=== PATIENT | female | born 1990 | race Caucasian/White ===

== ENCOUNTER 2018-09-12 18:26 | Emergency (ER) | payer OTHER, MEDICAID, SELFPAY ==
[2018-09-12 18:27] VITALS: BP 124/65; PULSE 79; RESP 18; TEMP 36.8; O2SAT 100; BMI 25.9
--- NOTE | 2018-09-12 18:47 | EKG12_ITS ---
Test Reason : SYNCOPE Blood Pressure : / mmHG Vent. Rate : 076 BPM Atrial Rate : 076 BPM P-R Int : 168 ms QRS Dur : 084 ms QT Int : 378 ms P-R-T Axes : 068 079 064 degrees QTc Int : 425 ms Sinus rhythm with marked sinus arrhythmia Otherwise normal ECG Confirmed by MIKALA DUONG, CAROLYNN ([id number]), rewrite editor SANG PADRON ([id number]) on 09/14/2018 3:44:00 PM Referred By: SHELBIE READ Confirmed By:CAROLYNN BACH MD
[2018-09-12 19:24] LABS: Absolute Lymphocyte Count 1.77 X10^3/ul (0.83-4.51); Absolute Neutrophil Count 2.6 X10^3/uL (2.0-7.7); Basophil# 0.01 X10^3/uL; Basophil% 0.2 % (0-1); Eosinophil# 0.09 X10^3/uL; Eosinophils% 1.8 % (0-5); Hematocrit 37.5 % (37-47); Hemoglobin 12.1 g/dl (12.0-15.0); Lymphocyte # 1.77 X10^3/ul (4.0); Lymphocyte % 35.3 % (19-41); Mean Corp Hgb Conc 32.3 g/gl (32-36); Mean Corpuscular Hgb 29.4 pg (27.0-32.0); Mean Corpuscular Volume 91.2 fL (81-99); Mean Platelet Vol. 11.5 fl (6.2-12.0); Monocyte# 0.53 X10^3/uL; Monocyte% 10.6 % (0-10); Neutrophil # 2.61 X10^3/uL (2.7-7.7); Neutrophil % 51.9 % (47-70); Platelet Count 356 K/mm3 (150-450); RBC Distribution Width CV 14.4 % (11.6-14.6); RBC Distribution Width SD 47.4 fl (35.1-43.9); Red Blood Count 4.11 M/mm3 (4.2-5.4)
[2018-09-12] MEDS: 0.9% Normal Saline 1,000 ML 1000 ML IV (19:24)
[2018-09-12 19:25] VITALS: BP 119/77; PULSE 81; RESP 18; O2SAT 99
[2018-09-12 19:25] LABS: POSITIVE COUNT NO; POSITIVE DIFFERENTIAL NO; POSITIVE MORPHOLOGY NO
--- NOTE | 2018-09-12 19:51 | ED.VISSUMM ---
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 She had trying to sit down but it up passing out and hit her head on the ground. She is found by coworkers. She notes she has some tenderness over her occiput. Patient denies any other injuries. Patient states that she still feels a bit dizzy now. She has a history of syncope and has had extensive cardiac and neurologic elevation. Physical Examination: Afebrile vital signs are stable Gen: Well-nourished well-developed Head: Normocephalic there is an occipital hematoma Eyes: Perrl EOMI ENT: TMs clear no rhinorrhea moist mucous membranes Neck: Supple no lymphadenopathy no JVD nontender CVS: Regular rate rhythm no murmurs normal S1-S2 Respiratory: No distress clear to auscultation bilaterally chest nontender Abdomen: Soft nontender nondistended normal bowel sounds no masses Back: Nontender Extremity: Nontender no edema Skin: Normal color no rash Neuro: alert orientated ?3 CN II-XII intact normal strength sensation reflexes gait cerebellar Psych: Normal affect normal mood Test Results: EKG showed a sinus rhythm at a rate of 76 with sinus arrhythmia. CBC was normal. Potassium 3.4. test negative. Emergency Department Course and Treatment: Patient received IV fluids and Zofran. She will be discharged home with supportive care. Follow-up with her doctors. Impression: 1. Syncope 2. Scalp hematoma This note was generated with [employer] dictation software. 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
[2018-09-12 20:20] VITALS: BP 113/78; PULSE 77; RESP 16; O2SAT 99
--- NOTE | 2018-09-12 20:25 | ED.RN ---
called lab to check on BMP results
[2018-09-12 20:37] LABS: Anion Gap 8 (5-15); BUN 15 mg/dL (7-18); BUN/Creat Ratio 17.8 RATIO (10-20); Calcium,Total 8.8 mg/dL (8.5-10.1); Chloride 106 mmol/L (98-107); Creatinine, Serum 0.84 mg/dL (0.55-1.02); EST Glomerular Filtration Rate 84 mL/min (>60); Est Glom Filt Rate - Afr Amer 102 mL/min (>60); Estimated Creatinine Clearance 95.23 ml/min; Glucose 94 mg/dL (74-106); Potassium 3.4 mmol/L (3.5-5.1); Sodium Level 139 mmol/L (136-145)
[2018-09-12 20:42] LABS: Pregnancy, Serum, hCG Quali. NEGATIVE Negative (0-9 Nonpreg)
[2018-09-12 21:19] VITALS: BP 121/79
== END 2018-09-12 21:19 | disposition home or self-care (01) ==
PROVIDERS: Emergency Provider Emergency Medicine
DX: R55 Syncope and collapse (principal); S00.03XA Contusion of scalp, initial encounter; I49.8 Other specified cardiac arrhythmias; W22.8XXA Striking against or struck by other objects, initial encounter; Y93.9 Activity, unspecified; Y92.9 Unspecified place or not applicable; Y99.0 Civilian activity done for income or pay
CPT/HCPCS: 80048; 84703; 85025; 93005; 99285

== ENCOUNTER 2019-09-24 14:09 | Emergency (ER) | payer OTHER, SELFPAY ==
[2019-09-24 14:11] VITALS: BP 127/76; PULSE 90; RESP 16; TEMP 37.1; O2SAT 100; BMI 25.8
--- NOTE | 2019-09-24 14:55 | RAD_ITS ---
STUDY: X-RAY - LEFT FOOT CLINICAL: Female, 29 years old. Patient dropped a rotor on top of foot while at work TECHNIQUE: 3 view(s) of the foot. COMPARISON: None. FINDINGS: Normal talus, calcaneus, and tarsal bones. Normal visualized subtalar, talonavicular, calcaneocuboid, tarsal and tarsometatarsal articulations. Normal metatarsi. Normal metatarsophalangeal joint of the great toe. Normal tibial and fibular sesamoid bones. Normal interphalangeal joint of the great toe. Normal phalanges of the great toe. Normal second through fifth metatarsophalangeal joints. Normal interphalangeal joints and phalanges of the lesser toes. The soft tissue structures are unremarkable. RAD/Foot min 3 Views IMPRESSION: Normal x-ray examination of the foot. Electronically Signed: [place] Gonsales, at 15:20 EST , Service support ,
--- NOTE | 2019-09-24 15:38 | ED.DCSUM_ITS ---
History of Present Illness Chief Complaint: Lower Extremity Injury Narrative: Patient presenting secondary to a foot injury. Patient reports that she dropped a semitruck brake rotor on her left foot injuring her great toe and other toes. She has pain with bearing weight. She denies any other injuries. Pain is moder ate to severe. Past Medical History - Allergies and Home Meds Allergies/Adverse Reactions: Allergies adhesive Allergy (Verified 09/24/19 14:11) Rash azithromycin Allergy (Verified 09/24/19 14:11) Other jer flavor Allergy (Verified 09/24/19 14:11) Swelling acetaminophen [From Percocet] Adverse Reaction (Verified 09/24/19 14:11) Other oxycodone HCl [From Percocet] Adverse Reaction (Verified 09/24/19 14:11) Other Primary Care Physician: Care Physician,No Primary [Primary Care Provider] - Past Medical History: None Smoking Status: Current every day smoker Review of Systems General: Denies: Fever Musculoskeletal: Reports: Extremity Pain Skin: Denies: Abrasions Neurological: Denies: Weakness, Parasthesia Physical Exam Vital Signs/Narrative: Vital Signs Temp Pulse Resp BP Pulse Ox 09/24/19 14:11 98.8 F 90 16 127/76 H 100 - Extremity Exam Left Foot: - - Examination of the patient's left foot shows bruising over the proximal phalanx of the patient's left great toe with limited range of motion due to pain. There is tenderness palpation of the great and second toes. No midfoot tenderness. Normal pulses. General: Well nourished, Well developed Head: Normocephalic ENT: No Trauma Cardiovascular: Regular rate, Regular rhythm Respiratory: No distress Skin: Normal color Neurological: Alert, Oriented x3 Diagnostic/Tx/Re-eval - Medical Decision Making Patient presented secondary to a foot injury. Personal review of the patient's three-view x-ray shows a fracture of the proximal phalanx of the great toe that is intra-articular. Patient be placed in a walking boot and crutches and will be made nonweightbearing. She will be given orthopedics with which to follow- up. ED Disposition - Plan for ED Patient: Disposition: Home or Assisted Living Diagnosis: Fractured great toe Instructions: FRACTURE, Toe [Closed] Referrals: Sherman So MD [STAFF PHYSICIAN] - 1 Week
[2019-09-24 16:08] VITALS: PULSE 88; RESP 17; O2SAT 97
== END 2019-09-24 16:09 | disposition home or self-care (01) ==
PROVIDERS: Emergency Provider Emergency Medicine
DX: S92.412A Displaced fracture of proximal phalanx of left great toe, initial encounter for closed fracture (principal); W20.8XXA Other cause of strike by thrown, projected or falling object, initial encounter; Y99.0 Civilian activity done for income or pay; Y93.9 Activity, unspecified; F17.200 Nicotine dependence, unspecified, uncomplicated; Z88.5 Allergy status to narcotic agent
CPT/HCPCS: 73630; 99285

== ENCOUNTER 2020-05-28 19:25 | Emergency (ER) | payer MEDICAID, SELFPAY ==
[2020-05-28 19:26] VITALS: BP 134/85; PULSE 93; RESP 16; TEMP 36.6; O2SAT 100; BMI 27.9
--- NOTE | 2020-05-28 19:50 | ED.VIS.GEN ---
History of Present Illness Chief Complaint: Allergic Reaction Informant: Patient Narrative: 29-year-old female presenting with concern for allergic reaction. She states she ate a barbecue sauce at a restaurant and now her lips are tingling and she has a rash on her hands. Does not feel as if her throat is closing. She does not have abdominal pain, nausea, vomiting, shortness of breath. Patient states that she has been having more odd outbreaks to different foods, and she is going to get food allergy testing done soon. She does not have an EpiPen at home. Past Medical History - Allergies and Home Meds Allergies/Adverse Reactions: Allergies adhesive Allergy (Verified 05/28/20 19:29) Rash azithromycin Allergy (Verified 05/28/20 19:29) Other Iodinated Contrast Media [CONTRASTS] Allergy (Verified 05/28/20 19:29) Hives jer flavor Allergy (Verified 05/28/20 19:29) Swelling oxycodone HCl [From Percocet] Adverse Reaction (Verified 05/28/20 19:29) Other Primary Care Physician: Sea Cox DO [Primary Care Provider] - Past Medical History: - - Food allergies Surgical History: noncontributory Lives: With Family Smoking Status: Current every day smoker Alcohol: None Drugs: None Review of Systems General: Denies: Chills, Fever, Sweats Eyes: Denies: Visual changes - bilaterally, Diplopia ENT: Reports: - - Lips tingling. Denies: Rhinorrhea, Sore throat Cardiovascular: Denies: Chest pain, Palpitations Respiratory: Denies: Dyspnea, Cough, Dyspnea on exertion Gastrointestinal: Denies: Abdominal pain, Nausea, Vomiting, Diarrhea, Melena, Hematochezia Skin: Reports: Rash Physical Exam Vital Signs/Narrative: Vital Signs Temp Pulse Resp BP Pulse Ox 05/28/20 19:26 98 F 93 16 134/85 H 100 Inital Vital Signs reviewed: Yes General: Well nourished, No Acute Distress Head: Normocephalic, Atraumatic ENT: Moist mucous membranes, No rhinorrhea, - - No stridor Cardiovascular: Regular rate, Regular rhythm Respiratory: No distress, CTA bilaterally Abdomen: Soft, Nontender Skin: Rash - Cryo rash on hands. Neurological: Alert, Oriented x3 Psychological: Normal affect Diagnostic/Tx/Re-eval - Medical Decision Making Patient presents with allergic reaction which is likely to the food she was eating. She was given oral prednisone, Pepcid, Benadryl. Her vital signs are stable and she is afebrile. I checked on her multiple times and her symptoms improved although she was tired from the Benadryl. Her mother is here accompanying her and will get her home. I feel she is safe to be discharged at this time. I did write her a prescription for an EpiPen for home. She is given return precautions. Patient able for discharge at this time. Impression: 1. Allergic reaction ED Disposition - Plan for ED Patient: Disposition: Home or Assisted Living Instructions: ED Allergic Reaction Local Other Prescriptions: Epi Pen (for allergic rxn) 0.3 mg IM X1 PRN #2 syringe PRN Reason: allergic reaction Transmission Status: Received by [facility] [address] predniSONE tablet 60 mg PO DAILY #15 tab Transmission Status: Received by [facility] Referrals: Sea Cox DO [Primary Care Provider] -
[2020-05-28] MEDS: Famotidine 20 MG Tablet PO (19:57)
[2020-05-28] MEDS: predniSONE 20 MG Tablet 60 MG PO (19:57)
[2020-05-28] MEDS: DiphenhydrAMINE 25 MG Capsule PO (20:02)
[2020-05-28 21:59] VITALS: BP 116/81; PULSE 62; RESP 18; O2SAT 98
== END 2020-05-28 21:59 | disposition home or self-care (01) ==
PROVIDERS: Emergency Provider Student in an Organized Health Care Education/Training Program; PCP Student in an Organized Health Care Education/Training Program
DX: T78.40XA Allergy, unspecified, initial encounter (principal); F17.200 Nicotine dependence, unspecified, uncomplicated
CPT/HCPCS: 99283

== ENCOUNTER → 2020-07-30 14:12 | Outpatient (CLI) | payer MEDICAID, SELFPAY ==
--- NOTE | 2020-07-30 14:15 | US_ITS ---
STUDY: ULTRASOUND BREAST - LEFT REASON FOR EXAM: Female, 29 years old. Palpable lump left breast. TECHNIQUE: Axial and longitudinal images of the LEFT breast were performed with a high resolution ultrasound transducer. # OF IMAGES: 8 COMPARISON: Comparison is made with prior mammogram done earlier in the day. FINDINGS: LEFT Breast: There is a 4 mm x 3 mm x 2 mm cyst at the 3 o''clock position of the breast at 1 cm from the nipple. US/Breast Limited Unilateral IMPRESSION: 4 mm x 3 mm x 2 mm cyst at the 3 o''clock position of the breast at 1 cm from the nipple. ASSESSMENT CATEGORY: BIRADS Category 2: Benign. A letter regarding these results will be sent to the patient by the facility within 30 days. Electronically Signed: [place] Gonsales, at 15:42 EST , Service support ,
--- NOTE | 2020-07-30 14:15 | BI_ITS ---
MAMMOGRAPHY - BILATERAL DIAGNOSTIC REASON FOR EXAM: Female, 29 years old. Left retroareolar lump and left breast discharge. PERTINENT HISTORY: Grandmother with breast cancer. Aunt''s with breast cancer. TECHNIQUE: Digital bilateral breast cornelius (3D mammographic acquisition) in the CC and MLO projections. 2-D mediolateral oblique (MLO) and craniocaudad (CC) views of both breasts were obtained. CAD: Full Field Digital Mammography with Computer Added Detection was performed. COMPARISON: None. Baseline examination. FINDINGS: Breast Composition: The breasts are heterogeneously dense, which may obscure small masses. There are no dominant masses or suspicious calcifications. A loop recording device is seen overlying the inferior medial portion of the left breast. No other significant abnormalities are identified. BI/DIAG MAMM W/CAD, BILAT IMPRESSION: Negative diagnostic mammogram. With the patient''s history of left breast discharge and retroareolar lump, correlation with ultrasound is recommended. ASSESSMENT CATEGORY: BIRADS Category 0: Incomplete. Need additional imaging evaluation. A letter regarding these results will be sent to the patient by the facility within 30 days. Approximately 10% of breast cancers are not detected by mammography. A normal mammogram should not delay biopsy of a clinically suspicious abnormality. Electronically Signed: [place] Gonsales, at 15:12 EST , Service support ,
== END ==
PROVIDERS: PCP Student in an Organized Health Care Education/Training Program; Referring Provider Registered Nurse; Visit Provider Registered Nurse
DX: N64.52 Nipple discharge (principal)
CPT/HCPCS: 76642; 77062; 77066; G0279

== ENCOUNTER 2020-08-26 05:58 | Day surgery (SDC) | payer MEDICAID, SELFPAY ==
[2020-08-19 11:41] VITALS: BMI 25.8
[2020-08-26] VITALS (7 sets, daily range): BP systolic 97–129; BP diastolic 64–79; PULSE 58–99; RESP 14–18; TEMP 36.2–37.3; O2SAT 98–100; BMI 26.7
--- NOTE | 2020-08-26 | IMM_PTH ---
PATIENT: ROSSANA HARO LOC: [facility] U#:[id number] AGE/SX: 29/F ROOM: RE08/26/[address]: Dr. Steve Duff MD : 1990 BED: DIS: 08/26/2020 SPEC #: [id number] RECD: 08/27/20 11:59 STATUS: KAYLIE REQ #: [id number] YURY: 08/26/20 00:[address]: Steve Duff DEPT: IMMUNOHISTOCHEMISTRY RECD BY: Ann-Marie Li ENTERED: 08/27/20 12:00 SP TYPE: IMMUNO OTHR DR: Dr. Sea Cox, Tissues: Left breast, NOS Procedures: CK8 (initial) CALPONIN-1 (add) P40 (add) PHYSICIAN & INSTITUTION [place] [id number] SPECIMEN INFORMATION: Tissue Source: Left breast mass, excisional biopsy Clinical Info: Left breast mass Specimen Number: [id number] #2 CPT code: 29310, 10937 x2 METHODOLOGY: Deparaffinized sections of prefer/formalin-fixed tissue or PAP/DQ stained slides are incubated with monoclonal/polyclonal antibodies/oligonucleotide probes. Localization is made via biotin free immunoperoxidase method. Appropriate controls are performed and reacted as expected. Results on target cell population are indicated in the following table: RESULTS: ANTIBODY / CLONE RESULT Block 2 CK8 ([id number]) positive P40 (BC28) positive Calponin-1 (PE565A) positive These tests were developed and their performance characteristics determined by [facility]. They may not have been cleared or approved by the U.S. Food and Drug Administration. The FDA has determined that such clearance or approval is not necessary. The above immunohistochemical/dualISH markers are ordered and reviewed by the Pathologist. INTERPRETATION: Left breast mass, excisional biopsy: Intraductal papilloma. AM:ashley 08/28/20
--- NOTE | 2020-08-26 06:10 | HP_ITS ---
Intake Vital Signs 08/19/20 Height 5 ft 7 in 08/19/20 Weight: 165 lb 08/19/20 BP 136/79 H 08/19/20 Blood Pressure Location Lt brachial 08/19/20 Position Sitting 08/19/20 Respiration 16 Intake Visit Reasons: BIRADS 2 LEFT BREAST Chief Complaint: left nipple discharge Network Engineering Advisor Required: No Is patient in pain?: Yes (left breast) Allergies adhesive Allergy (Verified 08/19/20 11:42) Rash azithromycin Allergy (Verified 08/19/20 11:42) Other Iodinated Contrast Media [CONTRASTS] Allergy (Verified 08/19/20 11:42) Hives jer flavor Allergy (Verified 08/19/20 11:42) Swelling oxycodone HCl [From Percocet] Adverse Reaction (Verified 08/19/20 11:42) Other Medications Epi Pen (for allergic rxn) 0.3 mg IM X1 PRN #2 syringe 05/28/20 [Rx] chlorpheniramine maleate 4 mg tablet 4 mg PO Q6H PRN 08/19/20 [History Confirmed 08/19/20] naproxen sodium 220 mg tablet 220 mg PO BID PRN 08/19/20 [History Confirmed 08/19/20] triamcinolone acetonide 0.1 % lotion 1 applic TOPICAL DAILY 08/19/20 [History Confirmed 08/19/20] PFSH Medical History (Updated 08/19/20 @ 11:39 by Ita Cheema) Diarrhea (Acute) Discharge from left nipple (Acute) Lupus (Acute) RLS (restless legs syndrome) (Acute) SOB (shortness of breath) (Acute) Sjogren's disease (Acute) Surgical History (Updated 08/19/20 @ 11:39 by Ita Cheema) History of loop recorder (Acute) Family History (Updated 08/19/20 @ 11:41 by Ita Cheema) Grandmother Diabetes Kidney disease Thyroid disorder Cancer Breast cancer Father Asthma Heart disease CAD (coronary artery disease) Hypertension Grandfather Colon cancer Social History (Updated 08/19/20 @ 14:[address] Steve Duff MD) Smoking Status: Never smoker HPI HPI HPI: ROSSANA ABRAMS, is a 29 F who presents to the office today for HPI HPI Surgical H&P: Yes HPI: ROSSANA ABRAMS, is a 29 F who presents to the office today for Left breast mass. The patient has had a palpable left breast mass by the left nipple for the past 3 weeks. She also reports that she has been having nipple discharge which has been bloody or clear. The patient notes that she also has a significant history of breast and brain cancer and skin cancer in her family. ROS General General: No weight change or fatigue Breast Breast: Yes left breast lump, nipple discharge, breast pain and abnormal US Cardio Cardiovascular: No murmur, pacemaker, heart disease, atrial fibrillation, high blood pressure, heart attack, heart stent, palpitations, shortness of breat with exertion or chest pain Psych Psychiatric: No depression or anxiety Resp Respiratory: No shortness of breath, No sleep apnea, No cough, No COPD, No asthma, No emphysema, No wheezing Gastro Gastrointestinal: No abdominal pain, No nausea or vomiting, No diarrhea, No constipation, No blood in stool, No acid reflux, No hemorrhoids, No ulcers, No gallbladder problem, No black,tarry stools Paul Hematologic: No blood thinners Exam Const General: cooperative Orientation: alert, oriented x3 Chest Chest palpation & inspection: normal inspection of the chest Breast inspection: normal inspection of the breasts Breast Palpation: Yes breast mass lrb: Left, Yes nipple discharge lrb: Left Resp Effort & Inspection: normal respiratory effort Auscultation: clear to auscultation bilaterally Cardio Rate: regular rate Rhythm: regular rhythm Heart Sounds: no murmurs GI Inspection: non-distended Palpation: soft, nontender Assessment & Plan Problems 1. Left breast mass N63.20 Plan The patient has a palpable mass behind the left nipple. She is also having bloody nipple discharge. She had a mammogram and ultrasound which showed a small cyst behind the left areola. The patient has a firm nodule that I can feel and she does have bloody discharge on exam. I would recommend excisional biopsy of this area as she may have a large papilloma causing the bleeding. I discussed this with her in detail as well as the risks of bleeding, infection, hematoma, possibility of cancer requiring further surgery. The patient understands all the risks and is well to proceed with excisional biopsy of the left breast mass in OR. We discussed the current risks associated with COVID-19. While it is understood that there is a community spread of COVID-19, the risk of jeet COVID-19 while at [facility] ([facility]) is very low; however, the risk cannot be completely mitigated because of the community spread of the disease. We discussed in detail the risk of exposure to and/or potential harm posed by the COVID-19 virus with having a surgery/procedure at this time versus the risk of delaying the surgery/procedure. It is not possible to know either the risk of delaying the surgery or procedure or chance of getting an infection with perfect accuracy, but a joint decision was made to proceed at this time with the scheduled surgery/procedure as indicated on the consent form. Patient was notified that we will need to comply with any screening or testing [facility] wishes to perform or that surgery may be delayed for any positive results. Steve Duff MD Pager: [facility] [address] [place] [address], [address] [place] [address] Office: Coding Level of Care Code Off vis,new,level 3 Diagnoses Left breast mass N63.20 I have re-examined the patient. There are no clinical changes since date of exam.
[2020-08-26 06:29] LABS: Internal QC Validated? YES +Cl - CLEAR BKGD; Pregnancy, Urine Negative Negative
[2020-08-26] MEDS: Lactated Ringers 1,000 ML 100 ML IV (06:57)
[2020-08-26] MEDS: Cefazolin 2 GM in 0.9% Normal Saline 100 ML IV (07:30)
--- NOTE | 2020-08-26 07:30 | BRBX_PTH ---
PATIENT: ROSSANA HARO LOC: [facility] [place] U#:[id number] AGE/SX: 29/F ROOM: RE08/26/[address]: Dr. Steve Duff MD : 1990 BED: DIS: 08/26/2020 SPEC #: [id number] RECD: 08/26/20 08:34 STATUS: KAYLIE REOlive #: [id number] YURY: 08/26/20 07:[address]: Steve Duff DEPT: SURGICAL PATHOLOGY RECD BY: Rogelio Butterfield ENTERED: 08/26/20 09:01 SP TYPE: BREAST BX OT DR: Dr. Sea Cox, DO Tissues: Left breast, NOS Procedures: Surgery Specimen Level IV HEADER OPERATION: Excision, breast mass PRE-OP DIAGNOSIS: Left breast mass TISSUE SUBMITTED: Left breast mass MICROSCOPIC DIAGNOSIS Left breast mass, excisional biopsy: Intraductal papilloma. See comment. AM:ashley 08/27/20 COMMENT The lesion appears to have been completely excised in the planes examined. Immunohistochemistry ([id number]) supports the above diagnosis. MICROSCOPIC DESCRIPTION Slides are reviewed. GROSS DESCRIPTION Received in fixative is one container labeled with the patient's name and designated mass left breast. The specimen consists of two irregular fragments of santiago-yellow fibrofatty tissue. The smaller fragment measures 1.2 x 1 x 0.6 cm. This fragment is inked, bisected and totally submitted in cassette 1. The second fragment measures 3 x 2 x 1.5 cm. The second fragment is inked, sectioned and totally submitted in cassette 2. / AM:ashley 08/26/20 TC:1 CPT: 89841
[2020-08-26] MEDS: Bupivacaine Mpf 0.5% 30 ML VIAL (07:45)
--- NOTE | 2020-08-26 08:19 | OP.PCM_ITS ---
Problem List (1) Left breast mass Status: Acute Report of Operation Date of Procedure: 08/26/20 Pre-Operative Diagnosis: Left breast mass Post-Operative Diagnosis: Same Surgery/Procedure Performed:: Excisional biopsy left breast mass Specimen's removed: Left breast mass Description of Procedure: The patient was brought back to the operating room MAC anesthesia was induced. The left breast was prepped and draped in usual sterile fashion. A periareolar elliptical incision was marked and then anesthetized with local anesthetic. Scalpel was used to make an incision in electrocautery was used to maintain hemostasis. The mass was identified and grasped with an Allis and dissected free circumferentially with electrocautery. The cavity was irrigated and suc tioned dry and palpated and there were no further masses. The skin was closed with interrupted 3-0 Vicryl sutures as well as a running 4-0 Monocryl suture and glue. Patient tolerated the procedure was brought to PACU in stable condition. - Admit VTE Documentation VTE Mechan Device Prophylaxis: SCD's
--- NOTE | 2020-08-26 08:32 | PCM.DC.BS ---
Discharge Diet: No Restrictions Discharge Activity: May Not Drive - for 2-3 days or while taking narcotic pain meds. May shower in (days): 1 Lifting Restrictions: 10 pounds for 1 week. Call your doctor if your incision/area has: Continuous Slow Oozing, Sudden Increased Bleeding, Increased Pain/ Swelling, Increased Redness, Foul Smelling Discharge, Swelling at the incision site Call your doctor if you observe: Fever of 101 or Higher Suture Line Care: Avoid Pulling/Pushing, Avoid Pinching/Bending Allergies/Adverse Reactions: Allergies adhesive Allergy (Verified 08/19/20 11:42) Rash azithromycin Allergy (Verified 08/19/20 11:42) Other benzoyl peroxide Allergy (Verified 08/25/20 08:32) Rash CAUSES A BURN TO SKIN Iodinated Contrast Media [CONTRASTS] Allergy (Verified 08/19/20 11:42) Hives jer flavor Allergy (Verified 08/19/20 11:42) Swelling oxycodone HCl [From Percocet] Adverse Reaction (Verified 08/19/20 11:42) Other Medications to take at Discharge Epi Pen (for allergic rxn) 0.3 mg IM X1 PRN #2 syringe 05/28/20 chlorpheniramine maleate 4 mg tablet 4 mg PO Q6H PRN 08/19/20 naproxen sodium 220 mg tablet 220 mg PO BID PRN 08/19/20 triamcinolone acetonide 0.1 % lotion 1 applic TOPICAL DAILY 08/19/20 Ferrous Sulfate 325 mg PO DAILY@0800 08/25/20 Hydrocortisone [Cortisone] 60 gm TP PRN PRN 08/25/20 Hydrocodone/Acetaminophen [Hydrocodon-Acetaminophen 5-325] 1 - 2 tab PO Q6H PRN PRN 3 Days #10 tab 08/26/20 The following prescriptions were given: Hydrocodone/Acetaminophen [Hydrocodon-Acetaminophen 5-325] 1 - 2 tab PO Q6H PRN PRN 3 Days #10 tab PRN Reason: Pain Score 4-10/10 Transmission Status: Received by [facility] Primary Care Physician: Sea Cox DO [Primary Care Provider] - Please Follow Up With: Steve Duff MD When: Please call to schedule 2 week follow up appointment. [phone]
== END 2020-08-26 09:37 | disposition home or self-care (01) ==
LOC: SDC 05:59 → AC 05:59
PROVIDERS: Anesthesiology; PCP Student in an Organized Health Care Education/Training Program; Referring Provider Surgery; Visit Provider Surgery
PROC: (CPT 19301; principal; 2020-08-26 07:15)
DX: D24.2 Benign neoplasm of left breast (principal); N64.52 Nipple discharge; Z88.5 Allergy status to narcotic agent; Z88.8 Allergy status to other drugs, medicaments and biological substances
CPT/HCPCS: 19120; 81025; 87426; 88305; 88341; 88342; C9803; J7120; J2405

== ENCOUNTER 2021-12-15 19:02 | Emergency (ER) | payer OTHER, MEDICAID, SELFPAY ==
[2021-12-15 19:03] VITALS: BP 114/73; PULSE 79; RESP 17; TEMP 36.4; O2SAT 100; BMI 29.7
--- NOTE | 2021-12-15 19:26 | CT_ITS ---
EXAM: CT LUMBAR SPINE WITHOUT INTRAVENOUS CONTRAST CLINICAL INDICATION: injury/pain TECHNIQUE: Helically acquired images were obtained of the lumbar spine without intravenous contrast. 2D reformats were reviewed. This CT exam was performed using one or more of the following dose reduction techniques: automated exposure control, adjustment of the mA and/or kV according to patient size, and/or use of iterative reconstruction technique. This report was created using [employer] report generation technology. COMPARISON: None. FINDINGS: VERTEBRAE: Unremarkable. No fracture. No traumatic subluxation. No discrete lytic or blastic abnormality. Normal alignment. DISCS/SPINAL CANAL/NEURAL FORAMINA: There appears to be left paracentral disc protrusion at the L5-S1 level narrowing the left lateral recess. VASCULATURE: Visualized abdominal aorta is not dilated. LYMPH NODES: Unremarkable. No retroperitoneal adenopathy. CT/Spine Lumbar without Contrast IMPRESSION: 1. No acute fracture or subluxation. 2. Left L5 paracentral disc protrusion. Electronically Signed: Bowen Mcmahan MD at 20:05 EDT ,
--- NOTE | 2021-12-15 19:27 | ED.VIS.BACK ---
HPI History of Present Illness Chief Complaint: Back Informant: patient and EMS Onset/Context/Timing Onset: Today Context: Sudden Onset Injury: bending Timing: Continuous Quality: Aching Location: Lumbar Current Severity: Severe Maximum Severity: Severe Worsened by: improves with Movement Relieved by: Remaining Still Associated Symptoms Associated Symptoms: Tingling (in both posterior proximal thighs. Also all fingertips bilaterally.) and Unable to Ambulate; Negative for Abdominal Pain, Urinary Retention, Urinary Incontinence and Fecal Incontinence Narrative Narrative: Patient has a history of scoliosis and remote compression fractures in her spine after falling down a flight of steps 10 or 15 years ago, states that she bent over to pick a shirt up off the floor and suddenly had severe pain in her low back and her back locked up and she is unable to stand due to the pain and called EMS. She has tingling in both proximal thighs, with pain going into the buttock bilaterally, but no numbness in her feet. She developed tingling in all of her fingertips bilaterally but that started later. [facility] Medical History TONY II (cervical intraepithelial neoplasia II) Diarrhea Discharge from left nipple Left thyroid nodule Lupus JUAN (obstructive sleep apnea) Positive BOOGIE (antinuclear antibody) RLS (restless legs syndrome) Scoliosis Sjogren's disease SOB (shortness of breath) Vocal cord dysfunction Home Medications epinephrine 0.3 mg IM X1 PRN #2 syringe 05/28/20 [Rx Last Taken Unknown] chlorpheniramine maleate 4 mg tablet 4 mg PO Q6H PRN 08/19/20 [History Last Taken Unknown] naproxen sodium 220 mg tablet 220 mg PO BID PRN 08/19/20 [History Last Taken Unknown] triamcinolone acetonide 0.1 % lotion 1 applic TOPICAL DAILY 08/19/20 [History Last Taken Unknown] ferrous sulfate 325 mg PO DAILY@0800 08/25/20 [History Last Taken Unknown] hydrocortisone 60 gm TP PRN PRN 08/25/20 [History Last Taken Unknown] cyclobenzaprine 10 mg PO TID PRN #20 tablet 12/15/21 [Rx Last Taken Unknown] hydrocodone-acetaminophen 1 tab PO Q4H PRN PRN 3 Days #18 tablet 12/15/21 [Rx Last Taken Unknown] Allergy/AdvReac Type Severity Reaction Status Date / Time adhesive Allergy Rash Verified 12/15/21 19:07 azithromycin Allergy Other Verified 12/15/21 19:07 benzoyl peroxide Allergy Rash Verified 12/15/21 19:07 Iodinated Contrast Media Allergy Hives Verified 12/15/21 19:07 [CONTRASTS] jer flavor Allergy Swelling Verified 12/15/21 19:07 oxycodone HCl [From Percocet] AdvReac Other Verified 12/15/21 19:07 Family History (Updated 08/19/20 @ 11:41 by Ita Cheema) Grandmother Diabetes Kidney disease Thyroid disorder Cancer Breast cancer Father Asthma Heart disease CAD (coronary artery disease) Hypertension Grandfather Colon cancer Surgical History (Updated 11/21/20 @ 13:57 by Tiana Crocker) History of hip surgery History of loop recorder History of lumpectomy of left breast (~07/2020) Social History Smoking Status: Never smoker alcohol intake: never ROS ROS ED Constitutional Constitutional ED: Denies chills or fever(s) Gastrointestinal Gastrointestinal: Denies abdominal pain, constipation, fecal incontinence, nausea or vomiting Genitourinary Genitourinary ED: Reports other Details: no urinary retention ; Denies abdominal discomfort or urinary incontinence Musculoskeletal Musculoskeletal: Reports as per HPI and back pain; Denies neck pain Integumentary Denies rash or wounds Neurologic Neurologic: Reports paresthesias; Denies headache(s) or weakness EXAM Physical Exam Const Vital Signs: 12/15/21 19:03 Temperature 97.5 F L Temperature Source Temporal Pulse Rate 79 Respiratory Rate 17 Blood Pressure 114/73 Blood Pressure Mean 86 Pulse Ox 100 Oxygen Delivery Method Room Air Positive well nourished and well developed General Appearance ED: well developed and NAD HEENT Negative for trauma or tenderness Eyes PERRL and EOMs intact bilaterally Neck full ROM and supple GI normal to inspection, nondistended, normoactive bowel sounds, soft to palpation and non-tender Back/Spine normal to inspection Back/Spine Narrative: Tender across the upper lumbar area approximately L2, midline and bilateral paraspinal musculature. Thoracic Spine / Upper Back: normal to inspection Lumbar Spine / Lower Back: normal to inspection, ROM limited and other soft tissue findings bilateral (Unable to perform straight leg raises due to pain in her back) Extremity normal to inspection, full ROM and no pedal edema Neuro oriented x3 and no sensory deficits noted Sensorium / Orientation: alert Motor Exam: strength 5/5 throughout and clonus absent Deep Tendon Reflexes: Rt Patellar (L4): 2+, Lt Patellar (L4): 2+, Rt Ankle (S1): 2+ and Lt Ankle (S1): 2+ Deep Tendon Reflexes Back: Rt Patellar (L4): 2+, Lt Patellar (L4): 2+, Rt Ankle (S1): 2+ and Lt Ankle (S1): 2+ Plantar Reflex: Downgoing: bilateral Psych mental status grossly normal and thought process normal Skin no rashes or lesions noted and no wounds MDM MDM MDM Narrative Medical decision making narrative: Patient states she is in was in severe pain. She is reasonable, not hyperventilating at this time, but she agrees that she was hyperventilating due to the sudden onset of severe pain and that this was probably responsible for the tingling in her fingertips as she had no upper back or neck/head injury/pain. She states that numbness is improved now compared with what it was. Given her scoliosis, CT of the lumbosacral spine was obtained to evaluate for possible acute fractures given that she has a history of those. As noted below by the radiologist, there is no acute fracture or subluxation and she has a left L5 paracentral disc protrusion. She was treated with morphine, Norflex, Toradol and on reevaluation she is feeling much better but still having pain when she moves. She is able to move her legs now without severe pain. She and and I spoke with her for a while, they are comfortable going home and doing what she can with prescription pain medication for now and following up with a local exhibit specialist. Radiography Diagnostic Testing: Clinical Impression(s) from Imaging Studies Lumbar Spine CT 12/15/21 19:26 IMPRESSION: 1. No acute fracture or subluxation. 2. Left L5 paracentral disc protrusion. Electronically Signed: Bowen Mcmahan MD at 20:05 EDT , Discharge Plan Triage Chief Complaint: Back ED Provider: Hans Boss Dx/Rx/DC Orders Clinical Impression: Acute low back pain with symptoms of intervertebral disc disorder, duration less than 6 weeks, Herniation of intervertebral disc between L5 and S1 Instructions: ED Herniated Intervertebral Disk Prescriptions: New hydrocodone-acetaminophen [hydrocodone-acetaminophen] 1 TABLET tablet 1 tab PO Q4H PRN PRN (Reason: Pain) 3 Days Qty: 18 RF: 0 cyclobenzaprine [cyclobenzaprine] 10 MG tablet 10 mg PO TID PRN (Reason: Muscle Spasm) Qty: 20 RF: 0 No Action chlorpheniramine maleate [Allergy (chlorpheniramine)] 4 mg tablet 4 mg PO Q6H PRN (Reason: STOMACH) RF: 0 triamcinolone acetonide 0.1 % lotion 1 applic TOPICAL DAILY RF: 0 naproxen sodium [Aleve] 220 mg tablet 220 mg PO BID PRN (Reason: Pain 1-10 Or Fever) RF: 0 epinephrine 0.3 MG syringe 0.3 mg IM X1 PRN (Reason: allergic reaction) Qty: 2 RF: 0 hydrocortisone 60 GM cream 60 gm TP PRN PRN (Reason: Rash/Topical Irritation) RF: 0 ferrous sulfate 325 MG tablet 325 mg PO DAILY@0800 RF: 0 Primary Care Provider: Sea Cox Referrals: Sea Cox DO [Primary Care Provider] - Afshin Black DO [STAFF PHYSICIAN] - As soon as possible Ryan Bloom DO [STAFF PHYSICIAN] - As soon as possible Activity Restrictions/Additional Instructions: May choose either of the above spine surgeons; Dr. Bloom is with [facility], Dr. Black is with [facility] orthopedics. Disposition Disposition: Home, Self Care
--- NOTE | 2021-12-15 19:41 | ED.RN ---
In imaging, will start IV and admin meds upon return to the room, from imaging
--- NOTE | 2021-12-15 19:52 | NURSING ---
Scanner will not scan ID band. Patient confirms name and with this nurse
[2021-12-15] MEDS: Ketorolac 30 MG/ML Syringe IV (19:53)
[2021-12-15] MEDS: Morphine 4 MG/ML Syringe IV (19:53)
[2021-12-15] MEDS: Orphenadrine 60 MG/2 ML Ampul IV (19:53)
[2021-12-15] MEDS: Ondansetron 4 MG/2 ML Vial IV (19:59)
[2021-12-15 22:31] VITALS: BP 114/77; PULSE 74; RESP 15; O2SAT 99
== END 2021-12-15 22:32 | disposition home or self-care (01) ==
PROVIDERS: Emergency Provider Emergency Medicine; PCP Student in an Organized Health Care Education/Training Program; Visit Provider Emergency Medicine
DX: M51.27 Other intervertebral disc displacement, lumbosacral region (principal); M41.87 Other forms of scoliosis, lumbosacral region; G47.33 Obstructive sleep apnea (adult) (pediatric)
CPT/HCPCS: 72131; 99285; A4216; J2405

== ENCOUNTER → 2021-12-17 | Outpatient (CLI) | payer OTHER, MEDICAID, SELFPAY ==
[2021-12-17 11:14] LABS: Absolute Lymphocyte Count 1.79 X10^3/uL (0.83-4.51); Absolute Neutrophil Count 4.5 X10^3/uL (2.0-7.7); Basophil# 0.02 X10^3/uL; Basophil% 0.3 % (0-1); Eosinophil# 0.08 X10^3/uL; Eosinophils% 1.1 % (0-5); Hemoglobin 12.6 g/dL (12.0-15.0); Lymphocyte # 1.79 X10^3/ul (0.83-4.51); Lymphocyte % 25.3 % (19-41); Mean Corp Hgb Conc 32.3 g/dL (32-36); Mean Corpuscular Hgb 29.8 pg (27.0-32.0); Mean Corpuscular Volume 92.2 fL (81-99); Mean Platelet Vol. 10.6 fl (6.2-12.0); Monocyte# 0.65 X10^3/uL; Monocyte% 9.2 % (0-10); NRBC Flagged by Analyzer 0 % (0-5); Neutrophil # 4.53 X10^3/uL (2.7-7.7); Platelet Count 392 K/mm3 (150-450); RBC Distribution Width SD 47.4 fl (35.1-43.9); Red Blood Count 4.23 M/mm3 (4.2-5.4); White Blood Count 7.1 K/mm3 (4.4-11.0)
[2021-12-17 11:47] LABS: Thyroid Stim Hormone (TSH) 2.29 uIU/mL (0.358-3.74)
== END | disposition home or self-care (01) ==
LOC: PAVLAB 11:03
PROVIDERS: PCP Student in an Organized Health Care Education/Training Program; Referring Provider Obstetrics & Gynecology; Visit Provider Obstetrics & Gynecology
DX: N94.6 Dysmenorrhea, unspecified (principal)
CPT/HCPCS: 36415; 84443; 85025

== ENCOUNTER → 2021-12-25 | Outpatient (CLI) | payer OTHER, MEDICAID, SELFPAY ==
--- NOTE | 2021-12-25 16:50 | MRI_ITS ---
STUDY: MRI LUMBAR SPINE WITHOUT CONTRAST REASON FOR EXAM: Female, 31 years old. HNP TECHNIQUE: Standardized fat and water weighted pulse sequences were obtained in the sagittal and axial planes. COMPARISON: None FINDINGS: T12-L1: Normal endplates. Normal disc height, hydration and morphology. Normal bilateral facet joints. Normal central canal and bilateral lateral recesses. Normal bilateral intervertebral neural foramina. Normal lumbar lordosis. There is no substantial scoliosis. Normal conus medullaris that terminates at the L1-2: Normal endplates. Normal disc height, hydration and morphology. Normal bilateral facet joints. Normal central canal and bilateral lateral recesses. Normal bilateral intervertebral neural foramina. L2-3: Normal endplates. Normal disc height, hydration and morphology. Normal bilateral facet joints. Normal central canal and bilateral lateral recesses. Normal bilateral intervertebral neural foramina. L3-4: Normal endplates. Normal disc height, hydration and morphology. Normal bilateral facet joints. Normal central canal and bilateral lateral recesses. Normal bilateral intervertebral neural foramina. L4-5: Normal endplates. Normal disc height, hydration and morphology. Normal bilateral facet joints. Normal central canal and bilateral lateral recesses. Normal bilateral intervertebral neural foramina. L5-S1 There is a large central herniated disc at L5-S1.. Normal bilateral facet joints. Normal central canal and bilateral lateral recesses. Normal bilateral intervertebral neural foramina. Normal visualized sacral ala. Normal visualized paraspinous soft tissue structures. MRI/Spine Lumbar (Routine) IMPRESSION: There is a large central herniated disc at L5-S1. Electronically Signed: Navjot Gray MD at 3:59 EDT ,
== END | disposition home or self-care (01) ==
LOC: MRI 16:50
PROVIDERS: PCP Student in an Organized Health Care Education/Training Program; Visit Provider Orthopaedic Surgery
DX: M51.26 Other intervertebral disc displacement, lumbar region (principal)
CPT/HCPCS: 72148

== ENCOUNTER → 2022-01-01 | Outpatient (CLI) | payer OTHER, MEDICAID, SELFPAY ==
--- NOTE | 2022-01-01 13:25 | US_ITS ---
STUDY: ULTRASOUND TRANSVAGINAL CLINICAL: Female, 31 years old. dysmenorrhea TECHNIQUE: Transvaginal COMPARISON: None. FINDINGS: Normal uterine size measuring 7.9 x 4.5 x 4.2 cm in maximal craniocaudal dimension. There are no myometrial masses. Normal endometrial thickness measuring 5 mm. There are no endometrial masses, and there is no fluid in the endometrial cavity. Normal uterine cervix. Normal right ovary, measuring 2.0 x 2.3 x 1.5 cm. There are multiple follicles without a dominant cyst. Normal left ovary, measuring 3.6 x 2.4 x 1.3 cm. There are multiple follicles without a dominant cyst. There is no free fluid in the pelvis. Polycystic ovary disease: No. US/Transvaginal Non- IMPRESSION: Normal transvaginal pelvic ultrasound are Electronically Signed: Aayush Cardenas MD at 16:54 EDT ,
--- NOTE | 2022-01-01 13:25 | US_ITS ---
STUDY: ULTRASOUND TRANSVAGINAL CLINICAL: Female, 31 years old. dysmenorrhea TECHNIQUE: Transvaginal COMPARISON: None. FINDINGS: Normal uterine size measuring 7.9 x 4.5 x 4.2 cm in maximal craniocaudal dimension. There are no myometrial masses. Normal endometrial thickness measuring 5 mm. There are no endometrial masses, and there is no fluid in the endometrial cavity. Normal uterine cervix. Normal right ovary, measuring 2.0 x 2.3 x 1.5 cm. There are multiple follicles without a dominant cyst. Normal left ovary, measuring 3.6 x 2.4 x 1.3 cm. There are multiple follicles without a dominant cyst. There is no free fluid in the pelvis. Polycystic ovary disease: No. US/Pelvic (Non ) IMPRESSION: Normal transvaginal pelvic ultrasound are Electronically Signed: Aayush Cardenas MD at 16:54 EDT ,
== END | disposition home or self-care (01) ==
PROVIDERS: PCP Student in an Organized Health Care Education/Training Program; Visit Provider Obstetrics & Gynecology
DX: N94.6 Dysmenorrhea, unspecified (principal)
CPT/HCPCS: 76830; 76856

== ENCOUNTER 2022-01-22 15:21 | Outpatient (CLI) | payer OTHER, MEDICAID, SELFPAY ==
[2022-01-29 08:24] LABS: HPV APTIMA, High Risk Negative (Negative)
== END 2022-01-22 23:59 | disposition home or self-care (01) ==
LOC: LABSPEC 15:21
PROVIDERS: PCP Student in an Organized Health Care Education/Training Program; Visit Provider Obstetrics & Gynecology
DX: Z12.4 Encounter for screening for malignant neoplasm of cervix (principal)
CPT/HCPCS: 87624; 88175; G0145

== ENCOUNTER 2022-07-20 05:30 | Day surgery (SDC) | payer BC, MEDICAID, SELFPAY ==
[2022-07-17 09:26] LABS: Absolute Lymphocyte Count 1.43 X10^3/uL (0.83-4.51); Absolute Neutrophil Count 3.7 X10^3/uL (2.0-7.7); Basophil# 0.01 X10^3/uL; Basophil% 0.2 % (0-1); Eosinophil# 0.08 X10^3/uL; Eosinophils% 1.4 % (0-5); Hematocrit 38.1 % (37-47); Hemoglobin 12.5 g/dL (12.0-15.0); Lymphocyte # 1.43 X10^3/ul (0.83-4.51); Lymphocyte % 24.4 % (19-41); Mean Corp Hgb Conc 32.8 g/dL (32-36); Mean Corpuscular Hgb 30.1 pg (27.0-32.0); Mean Corpuscular Volume 91.8 fL (81-99); Mean Platelet Vol. 11.2 fl (6.2-12.0); Monocyte# 0.65 X10^3/uL; Monocyte% 11.1 % (0-10); NRBC Flagged by Analyzer 0 % (0-5); Neutrophil # 3.67 X10^3/uL (2.7-7.7); Neutrophil % 62.6 % (47-70); Platelet Count 316 K/mm3 (150-450); RBC Distribution Width CV 13.4 % (11.6-14.6); RBC Distribution Width SD 45.3 fl (35.1-43.9); Red Blood Count 4.15 M/mm3 (4.2-5.4); White Blood Count 5.9 K/mm3 (4.4-11.0)
[2022-07-17 09:32] LABS: International Normalized Ratio 1.1; Prothrombin Time (Protime)PT. 13.6 SECONDS (11.7-14.9)
[2022-07-17 09:33] LABS: Partial Thromboplast Time 33.1 Seconds (24.1-36.2)
[2022-07-17 10:01] LABS: AST(SGOT) 17 U/L (15-37); Alanine Aminotransfer ALT/SGPT 34 U/L (13-56); Albumin, Serum 3.9 g/dL (3.2-5.0); Alkaline Phosphatase 80 U/L (45-117); Anion Gap 4 (5-15); BUN 14 mg/dL (7-18); BUN/Creat Ratio 18.9 RATIO (10-20); Calcium,Total 9.3 mg/dL (8.5-10.1); Chloride 108 mmol/L (98-107); Creatinine, Serum 0.74 mg/dL (0.55-1.02); EST Glomerular Filtration Rate 95 mL/min (>60); Est Glom Filt Rate - Afr Amer 115 mL/min (>60); Globulin 4.1 g/dL (2.2-4.2); Glucose 99 mg/dL (74-106); Magnesium 2.1 mg/dL (1.6-2.6); Potassium 3.8 mmol/L (3.5-5.1); Sodium Level 137 mmol/L (136-145)
[2022-07-20] VITALS (17 sets, daily range): BP systolic 112–141; BP diastolic 54–87; PULSE 65–110; RESP 16; TEMP 35.8–37.6; O2SAT 96–100; BMI 31.6
--- NOTE | 2022-07-20 | HYST_PTH ---
PATIENT: ROSSANA HARO [place] [facility] [place] U#:[id number] AGE/SX: 31/F ROOM: RE07/20/[address]: Dr. Dee Romo MD : [id number] BED: DIS: 07/20/2022 SPEC #: [id number] RECD: 07/20/22 13:08 STATUS: KAYLIE BREWER #: [id number] YURY: 07/20/22 00:[address]: Dee Romo DEPT: SURGICAL PATHOLOGY RECD BY: Keron Fuentes ENTERED: 07/20/22 13:08 SP TYPE: HYSTERECT OTHR DR: Dr. Sea Cox DO Tissues: Uterus, NOS Procedures: Surgery Specimen Level V HEADER OPERATION: ERAS, vaginal hysterectomy, bilateral salpingectomy PRE-OP DIAGNOSIS: Dysmenorrhea, abnormal uterine bleeding TISSUE SUBMITTED: Uterus, cervix, bilateral fallopian tubes MICROSCOPIC DIAGNOSIS Uterus, cervix and bilateral fallopian tubes, hysterectomy and bilateral salpingectomy: Cervix ? acute and chronic cystic cervicitis. Endometrium ? secretory endometrium. Myometrium ? an intramural leiomyoma (0.7 cm in diameter). Bilateral fallopian tubes - no pathologic diagnosis. Paratubal cysts (focal endometriosis adjacent to one paratubal cyst). SJ:rg 07/21/2022 MICROSCOPIC DESCRIPTION Slides are reviewed. GROSS DESCRIPTION Received in fixative is one container labeled with the patient's name and designated uterus, cervix, bilateral fallopian tubes. The specimen consists of a hysterectomy specimen consisting of uterus with cervix and detached bilateral fallopian tubes. The uterus with cervix weighs 89 gm and measures 9 x 5.5 x 4 cm. The serosal surface is focally ragged. The ectocervical mucosa is unremarkable. The external os is oval in contour. The endocervical canal measures 3 cm in length and the endocervical mucosa is santiago, glistening and unremarkable. The triangular endometrial cavity measures 5 cm in length and up to 4 cm in width. The endometrium is santiago, glistening without any mass lesion and measures up to 0.5 cm in thickness. Sections of the uterine wall reveal one santiago nodular mass measuring 0.7 cm in diameter. The uterine wall measures up to 2 cm in thickness. The fallopian tubes are not identified as right or left and measures 2.5 cm in length and 0.5 cm in diameter and 4.5 cm in length and up to 1 cm in diameter. The fimbrial ends are identified. The larger fallopian tube also shows two paratubal cysts measuring 1 and 1.5 cm in greatest dimension. Sections reveal unremarkable cut surfaces. Piano Technician sections are submitted in nine cassettes as follows: 1 - anterior cervix, 2 - posterior cervix, 3 & 4 - anterior uterine wall, 5 & 6 - posterior uterine wall, 7 - nodular mass, 8 - smaller fallopian tube entirely submitted, 9??second fallopian tube and paratubal cyst. / CAN:ashley 07/20/2022 TC:1 CPT: 67020
--- NOTE | 2022-07-20 05:42 | EKG12_ITS ---
Test Reason : PRE-OP Blood Pressure : / mmHG Vent. Rate : 086 BPM Atrial Rate : 086 BPM P-R Int : 152 ms QRS Dur : 080 ms QT Int : 362 ms P-R-T Axes : 058 058 043 degrees QTc Int : 433 ms Normal sinus rhythm with sinus arrhythmia Normal ECG When compared with ECG of 12-SEP-2018 19:06, No significant change was found Confirmed by DMITRI DUONG, SURESH ([id number]), editor farm journal ELAINE SCHAFER ([id number]) on 07/26/2022 11:37:17 AM Referred By: Dee Romo Confirmed By:SURESH RIZVI MD
[2022-07-20 06:35] LABS: Internal QC Validated? YES +Cl - CLEAR BKGD; Pregnancy, Urine Negative Negative
[2022-07-20 06:46] LABS: Bedside Glucose 101 mg/dL (74-106)
[2022-07-20] MEDS: Gabapentin 600 MG Tablet PO (06:46)
[2022-07-20] MEDS: Acetaminophen 500 MG Tablet 1000 MG PO (06:46)
[2022-07-20] MEDS: Phenazopyridine 95 MG Tablet 190 MG PO (06:46)
[2022-07-20] MEDS: Scopolamine 1mg/72hr Patch 1 PATCH TD (06:47)
[2022-07-20] MEDS: Celecoxib 200 MG Capsule 400 MG PO (06:47)
[2022-07-20] MEDS: Lactated Ringers 1,000 ML 40 ML IV (07:05)
[2022-07-20] MEDS: dexAMETHasone 10 MG/ML Vial 8 MG IV (07:05)
[2022-07-20] MEDS: Magnesium 1 GM over 15 mins IV (07:12)
--- NOTE | 2022-07-20 07:14 | HP.PCM_ITS ---
HPI - General HPI Narrative ROSSANA ABRAMS, is a 31 F who presents TVS for persistent AUB and dysmenorrhea failed IUD and desires permanent management. she had a pelvic US that showed no signfiicant findings and has a history of one previously. [facility] Medical History (Updated 07/20/22 @ 07:[address] Dee Romo MD) Anemia Anxiety Asthma Bipolar disorder TONY II (cervical intraepithelial neoplasia II) Depression Diarrhea Discharge from left nipple Easy bruising Excessive bleeding Herniated disc History of IBS History of stress test Left thyroid nodule Leg cramps Lupus Non-smoker JUAN (obstructive sleep apnea) Positive BOOGIE (antinuclear antibody) RLS (restless legs syndrome) Scoliosis Sjogren's disease Sleep apnea SOB (shortness of breath) Syncope Urticaria Vasovagal syncope Vocal cord dysfunction Walker as ambulation aid Wears contact lenses Wears glasses Home Medications epinephrine 0.3 mg/0.3 mL injection, auto-injector 0.3 mg (0.3 mL) IM X1 PRN allergic reaction #2 syringes 05/28/20 [Rx Last Taken Unknown] chlorpheniramine maleate 4 mg tablet (Allergy (chlorpheniramine)) 4 mg PO Q6H PRN STOMACH 08/19/20 [History Last Taken Unknown] naproxen sodium 220 mg tablet (Aleve) 220 mg PO BID PRN Pain 1-10 Or Fever 08/19/20 [History Last Taken Unknown] ferrous sulfate 325 mg (65 mg iron) tablet 325 mg PO DAILY@0800 08/25/20 [History Last Taken Unknown] hydrocortisone 1 % topical cream 60 g TP PRN PRN Rash/Topical Irritation 08/25/20 [History Last Taken Unknown] cyclobenzaprine 10 mg tablet 10 mg PO TID PRN Muscle Spasm #20 TABLETS 12/15/21 [Rx Last Taken Unknown] cholecalciferol (vitamin D3) 25 mcg (1,000 unit) tablet (Vitamin D3) 25 mcg PO DAILY 07/13/22 [History Last Taken Unknown] magnesium 30 mg tablet 30 mg PO DAILY 07/13/22 [History Last Taken Unknown] tramadol 50 mg tablet 50 mg PO Q6H PRN PRN Pain 07/13/22 [History Last Taken Unknown] Allergy/AdvReac Type Severity Reaction Status Date / Time adhesive Allergy Rash Verified 07/20/22 06:33 azithromycin Allergy Other Verified 07/20/22 06:33 benzoyl peroxide Allergy Rash Verified 07/20/22 06:33 Iodinated Contrast Media Allergy Hives Verified 07/20/22 06:33 [CONTRASTS] jer flavor Allergy Swelling Verified 07/20/22 06:33 oxycodone HCl [From Percocet] AdvReac Other Verified 07/20/22 06:33 Family History Grandmother Diabetes Kidney disease Thyroid disorder Cancer Breast cancer Father Asthma Heart disease CAD (coronary artery disease) Hypertension Grandfather Colon cancer Surgical History (Updated 07/13/22 @ 11:00 by Ilda Holt) History of hip surgery History of loop recorder History of lumpectomy of left breast (~07/2020) History of wisdom tooth extraction Social History Smoking Status: Never smoker alcohol intake: never substance use type: does not use caffeine: No seatbelt use: always do you feel safe at home: Yes additional social history: [employer] Constitutional Constitutional: Reports systems reviewed and no addt'l complaints, except as documented; Denies as per HPI, change in weight, fatigue, fever(s), malaise, weakness or other Eyes Eyes: Reports systems reviewed and no addt'l complaints, except as documented; Denies as per HPI, change in vision or other ENT HEENT: Reports systems reviewed and no addt'l complaints, except as documented Respiratory/Chest Respiratory/Chest: Reports systems reviewed and no addt'l complaints, except as documented Gastrointestinal Gastrointestinal: Reports systems reviewed and no addt'l complaints, except as documented and as per HPI Genitourinary Genitourinary: Reports as per HPI Musculoskeletal Musculoskeletal: Reports systems reviewed and no addt'l complaints, except as documented Neurologic Neurologic: Reports systems reviewed and no addt'l complaints, except as documented Psychiatric Psychiatric: Reports systems reviewed and no addt'l complaints, except as documented Endocrine Endocrinology: Reports systems reviewed and no addt'l complaints, except as documented Hematologic/Lymphatic Hematologic/Lymphatic: Reports systems reviewed and no addt'l complaints, except as documented Vital Signs Vital Signs Vital Signs: 07/20/22 06:36 07/20/22 06:36 Temperature 97.1 F L Temperature Source Temporal Pulse Rate 80 Respiratory Rate 16 Respiratory Pattern Normal Blood Pressure 141/69 H Blood Pressure Mean 93 Blood Pressure Source Monitor Blood Pressure Position Semi-Fowlers Blood Pressure Location Right Arm Pulse Ox 100 Oxygen Delivery Method Room Air Weight Weight: 196 lb 6.91 oz Body Mass Index (BMI) 31.6 Physical Exam Const alert, oriented x3 and no apparent distress HEENT normocephalic Head and Scalp: atraumatic Eyes EOMs intact bilaterally and conjunctivae normal Neck full ROM, no lymphadenopathy, supple and thyroid normal General: trachea midline Lymph Lymphatic: no lymphadenopathy noted Resp normal respiratory effort, no retractions, no use of accessory muscles and clear to auscultation bilaterally Cardio regular rhythm GI normal to inspection, nondistended, normoactive bowel sounds, soft to palpation, non-distended and no masses Inspection: Negative for abdominal distention Back/Spine no CVA tenderness Extremity normal to inspection Skin no rashes or lesions noted Neuro moves all extremities and deep tendon reflexes 2+ bilaterally Psych mental status grossly normal Results Lab / Micro Data Result Diagrams: 07/17/22 08:51 07/17/22 08:50 Labs: Laboratory Results - last 24 hr 07/20/22 06:19: POC Glucose 101 07/20/22 06:20: Urine Test Negative Assessment & Plan Assessment/Plan (1) Dysmenorrhea: (2) Abnormal uterine bleeding: PLAN: Plan After discussing the patient's diagnosis and treatment plan options, patient wishes to proceed with surgical management. I have discussed with the patient the risks, benefits, and alternatives of the procedure which include but are not limited to risks of anesthesia, bleeding, infection, possible damage to bowel, bladder, or surrounding vasculature which could lead to additional surgery to evaluate any complications. Patient agrees to procedure and wishes to proceed. ACOG/uptodate references given for additional information regarding procedure.
[2022-07-20] MEDS: Cefazolin 2 GM in 0.9% Normal Saline 100 ML IV (07:45)
[2022-07-20] MEDS: Vasopressin 20 UNITS/ML Vial (08:00)
[2022-07-20] MEDS: Lactated Ringers 1,000 ML 70 ML IV (09:10)
--- NOTE | 2022-07-20 09:13 | OP.PCM_ITS ---
Problems Associated Problem List Diagnoses (1) Dysmenorrhea: (2) Abnormal uterine bleeding: Report of Operation Pre-Operative Diagnosis: see A/P Post-Operative Diagnosis: same Surgery/Procedure Performed:: TVH BS Description of Surgical Findings:: left ovarian to posterior uterine adhesion, right pelvic side wall adhesions Surgeon: Dee Romo bending press operator: Diana Cool Type of Anesthesia: General Specimen's removed: uterus, tubes Drains: mondragon Estimated Blood Loss (mL): 200 Fluids Replaced: crystalloid Description of Procedure: Patient was taken to the operating room and was placed under general anesthesia was prepped and draped in normal sterile fashion in the dorsal lithotomy position. Preoperative antibiotics and SCDs and Mondragon catheter was placed inside the bladder. Weighted speculum was placed in the vagina and the anterior and posterior lip of the cervix was grasped with 2 Gemini clamps and circumferentially injected with dilute vasopressin. A circumferential incision was made with a scalpel and the posterior cul-de-sac was entered into sharply and a longneck speculum was placed. some posterior adhesions were taken down bluntly and a left chocolate cyst drained. The anterior cul-de-sac was also dissected down and entered into sharply and the uterosacral ligaments were clamped cut and suture ligated bilaterally followed by the cardinal ligaments which were Clamped cut and suture ligated bilaterally with 0 Monocryl. The uterus serially descended and progressive bites were taken bilaterally up to the level of the utero-ovarian ligament bilaterally which was clamped transected and double ligated with 0 Monocryl suture and 0 Vicryl free tie. Bilateral fallopian tubes and ovaries were well visualized and noted be within normal limits and the bilateral fallopian tubes were transected across the base with a Karine clamp and removed and sutured with 0 Vicryl suture. right pelvic side wall required a figure of eight suture for hemostasis over a raw area where adhesions had been. the left ovary was oversewn with 2-0 vicryl for hemostasis. then excellent hemostasis was noted. The vagina was closed with [id number] 0 Vicryl pop offs including the posterior and anterior peritoneum in the reapproximation. All instruments removed from the vagina clear urine was noted at the end of the procedure and patient was awoken and taken recovery in stable condition. Grafts/Implants Used: none Complications none Admit VTE Documentation VTE Present on Admission: No VTE Mechan Device Prophylaxis: SCD's VTE Pharm Prophylaxis ordered?: Yes Multi Select Codes Urinary/Genital Urinary/Genital CPT Codes: 62066 TVH+BS/O <250gr uterus
--- NOTE | 2022-07-20 09:16 | DCINST_ITS ---
Discharge Instructions Procedure Hysterectomy, Vaginal Diet Discharge Diet: No restrictions Activity Discharge Activity: Return to Normal Activity, May Not Drive (while taking narcotic pain medications.) and May Shower May resume sexual activity in: 6-8 weeks Dressing / Incision Call your doctor if your incision/area has: Continuous Slow Oozing, Sudden Increased Bleeding, Increased Pain/ Swelling, Increased Redness and Foul Smelling Discharge Call your doctor if you observe: Fever of 101 or Higher, Inability to urinate, Inability to have a bowel movement and Using more than 1 pad per hour Follow Up Care Please Follow Up With: Dee Romo MD Test Results: Test results from this visit will be discussed in further detail at your follow- up appointment, if applicable. Discharge Plan Admission Attending Provider: Dee Romo Primary Care Provider: Sea Cox Discharge Orders/Prescriptions Prescriptions: New hydrocodone-acetaminophen 5-325 mg tablet 1 tab PO Q6H PRN (Reason: pain) 5 Days Qty: 20 0RF naproxen 250 mg tablet 250 - 500 mg PO Q8H PRN PRN (Reason: MILD PAIN) Qty: 30 1RF Continued chlorpheniramine maleate [Allergy (chlorpheniramine)] 4 mg tablet 4 mg PO Q6H PRN (Reason: STOMACH) naproxen sodium [Aleve] 220 mg tablet 220 mg PO BID PRN (Reason: Pain 1-10 Or Fever) epinephrine 0.3 MG syringe 0.3 mg IM X1 PRN (Reason: allergic reaction) Qty: 2 0RF hydrocortisone 60 GM cream 60 g TP PRN PRN (Reason: Rash/Topical Irritation) ferrous sulfate 325 MG tablet 325 mg PO DAILY@0800 cyclobenzaprine 10 MG tablet 10 mg PO TID PRN (Reason: Muscle Spasm) Qty: 20 0RF tramadol 50 mg Tablet 50 mg PO Q6H PRN PRN (Reason: Pain) magnesium 30 mg Tablet 30 mg PO DAILY cholecalciferol (vitamin D3) [Vitamin D3] 25 mcg (1,000 unit) Tablet 25 mcg PO DAILY Other Ambulatory Orders: 12 Lead EKG (Routine) Timeframe: [id number] Location: None Selected Ordered By: Dr. Tyree Juan Referrals / Follow Up: Sea Cox, [Primary Care Provider] - Disposition Disposition (needs filled in before D/C Order can be placed): Home, Self Care
[2022-07-20 12:37] LABS: Hematocrit 37.4 % (37-47); Hemoglobin 12.7 g/dL (12.0-15.0); Mean Corpuscular Volume 91.2 fL (81-99); Mean Platelet Vol. 11.1 fl (6.2-12.0); POSITIVE DIFFERENTIAL YES; Platelet Count 315 K/mm3 (150-450); RBC Distribution Width CV 13.3 % (11.6-14.6); RBC Distribution Width SD 44.6 fl (35.1-43.9); White Blood Count 13.1 K/mm3 (4.4-11.0)
[2022-07-20 12:38] LABS: Scan Indicated on CBC? Y/N YES- FLAGS NOTED
[2022-07-20 12:58] LABS: Differential Comment SCANNED
[2022-07-20] MEDS: HYDROcodone Bitartrate/Apap 5/325 Tablet PO (13:12)
[2022-07-20] MEDS: Ondansetron ODT 4 MG Tablet PO (16:21)
--- NOTE | 2022-07-20 16:24 | SUR.PHASEII ---
While getting dress to be discharged, patient had small emesis, estimated 25ml. Oral Zofran given prior to discharge.
== END 2022-07-20 16:33 | disposition home or self-care (01) ==
LOC: SDC 05:31 → AC 05:31
PROVIDERS: Anesthesiology; PCP Student in an Organized Health Care Education/Training Program; Referring Provider Obstetrics & Gynecology; Visit Provider Obstetrics & Gynecology
PROC: (CPT 58260; principal; 2022-07-20 07:10)
DX: N93.9 Abnormal uterine and vaginal bleeding, unspecified (principal); Z79.891 Long term (current) use of opiate analgesic; N94.6 Dysmenorrhea, unspecified; D64.9 Anemia, unspecified; N72 Inflammatory disease of cervix uteri; N83.8 Other noninflammatory disorders of ovary, fallopian tube and broad ligament; D25.1 Intramural leiomyoma of uterus
CPT/HCPCS: 58262; 00944; 80048; 80076; 81025; 82962; 83735; 85025; 85027; 85610; 85730; 86703; 86704; 86706; 86803; 86850; 86900; 86901; 87340; 88307; 93005; J7120; J2405; J3475

== ENCOUNTER → 2022-07-20 | Outpatient (REF) | payer BC, SELFPAY ==
[2022-07-20 11:57] LABS: HIV - WCH Non-Reactive (Nonreactive); Hepatitis B Surface Antibody Reactive; Hepatitis B Surface Antigen Non-Reactive (Nonreactive); Hepatitis C Antibody Non-Reactive (Nonreactive)
[2022-07-21 14:56] LABS: Hepatitis B Core Ab Total Negative (Negative)
== END ==
LOC: EDREF 09:34
PROVIDERS: Obstetrics & Gynecology; PCP Student in an Organized Health Care Education/Training Program; Visit Provider Emergency Medicine
DX: R69 Illness, unspecified (principal)
CPT/HCPCS: 86703; 86704; 86706; 86803; 87340